=== PATIENT | male | born 1975 | race Caucasian/White ===

== ENCOUNTER 2017-12-15 13:46 | Emergency (ER) | payer MEDICAID ==
[~2017-12-15] VITALS: Ht 182.9 cm; Wt 112.0 kg
[~2017-12-15 13:46] MED LIST: CLIN-5 PO
[2017-12-15 13:57] VITALS: BP 139/87
[2017-12-15] MEDS ORDERED: SULF1TAB49 PO (14:50)
[2017-12-15] MEDS ORDERED: CEPH500C5 PO (14:50)
== END 2017-12-15 15:16 | disposition left against medical advice (07) ==
LOC: ER 13:47
DX: L02.414 Cutaneous abscess of left upper limb (principal); L02.413 Cutaneous abscess of right upper limb; L03.114 Cellulitis of left upper limb; L03.113 Cellulitis of right upper limb; I10 Essential (primary) hypertension; J45.909 Unspecified asthma, uncomplicated; G89.29 Other chronic pain; M19.90 Unspecified osteoarthritis, unspecified site; Z86.14 Personal history of Methicillin resistant Staphylococcus aureus infection; Z98.890 Other specified postprocedural states; Z79.899 Other long term (current) drug therapy; Z59.0 Homelessness; Z56.0 Unemployment, unspecified
CPT/HCPCS: 99283; A6446; A6449

== ENCOUNTER 2018-11-11 04:07 | Emergency (ER) | payer MEDICAID ==
[~2018-11-11] VITALS: Ht 182.9 cm; Wt 102.2 kg
[~2018-11-11 04:07] MED LIST changes: +CEPH500C5 PO
[2018-11-11] MEDS ORDERED: acetaminophen 325mg tablet PO ONE (04:30)
[2018-11-11] MEDS ORDERED: ondansetron 4mg rapidly disintigrating tab PO ONE (04:30)
[2018-11-11] MEDS ORDERED: ibuprofen tablet 400 MG TABLET PO ONE (04:30)
[2018-11-11] MEDS ORDERED: amox tr/potassium clavulanate 875/125mg TAB PO ONE (04:30)
[2018-11-11] MEDS ORDERED: bacitracin 15gm ointment TP ONE (04:30)
--- NOTE | 2018-11-11 05:09 | NUR ---
Pt given tylenol, ibuprofen, augmenten and zofran [address] samson at bedside numbing pts lip lac. Pt tolerating well.
--- NOTE | 2018-11-11 05:36 | NUR ---
dr. samson at bedside suturing.
[2018-11-11 05:37] VITALS: BP 163/79
[2018-11-11] MEDS ORDERED: AMOX-422 PO (05:43)
== END 2018-11-11 06:05 | disposition home or self-care (01) ==
LOC: ER 04:08
DX: S01.511A Laceration without foreign body of lip, initial encounter (principal); I10 Essential (primary) hypertension; J45.909 Unspecified asthma, uncomplicated; M19.90 Unspecified osteoarthritis, unspecified site; G89.29 Other chronic pain; Z86.14 Personal history of Methicillin resistant Staphylococcus aureus infection; F15.90 Other stimulant use, unspecified, uncomplicated; Z79.899 Other long term (current) drug therapy; Z98.890 Other specified postprocedural states; Z59.0 Homelessness; Z56.0 Unemployment, unspecified; Y04.0XXA Assault by unarmed brawl or fight, initial encounter; Y93.89 Activity, other specified; Y92.89 Other specified places as the place of occurrence of the external cause; Y99.8 Other external cause status
CPT/HCPCS: 12011; 99284

== ENCOUNTER 2018-12-15 17:23 | Emergency (ER) | payer MEDICAID ==
[~2018-12-15] VITALS: Ht 182.9 cm; Wt 102.3 kg
[2018-12-15 17:24] VITALS: BP 137/85
== END 2018-12-15 22:17 | disposition left against medical advice (07) ==
LOC: ER 17:24
DX: L08.9 Local infection of the skin and subcutaneous tissue, unspecified (principal); Z53.21 Procedure and treatment not carried out due to patient leaving prior to being seen by health care provider

== ENCOUNTER 2019-02-02 19:49 | Emergency (ER) | payer MEDICAID ==
[~2019-02-02] VITALS: Ht 182.9 cm; Wt 100.0 kg
[~2019-02-02 19:49] MED LIST changes: -CEPH500C5 PO
[2019-02-02] MEDS ORDERED: ketorolac trometh inj. 60 MG/2 ML VIAL IM ONE (20:25)
[2019-02-02] MEDS ORDERED: morphine 4 MG/ML inj SYRINge IM ONE (20:25)
[2019-02-02] MEDS ORDERED: HYDROcodone/acetaminophen 10/325mg tab PO ONE (20:25)
--- NOTE | 2019-02-02 20:25 | NUR ---
Pt's personal items with security. To be returned to Pt at discharge.
[2019-02-02 20:59] VITALS: BP 126/74
[2019-02-02] MEDS ORDERED: IBUP-1986 PO (21:19)
[2019-02-02] MEDS ORDERED: HYDR-4353 PO (21:33)
--- NOTE | 2019-02-02 21:50 | NUR ---
Pt belongings retrieved from security and returned to Pt.
== END 2019-02-02 21:51 | disposition home or self-care (01) ==
LOC: ER 19:50
DX: S22.20XA Unspecified fracture of sternum, initial encounter for closed fracture (principal); L08.9 Local infection of the skin and subcutaneous tissue, unspecified; I10 Essential (primary) hypertension; J45.909 Unspecified asthma, uncomplicated; M19.90 Unspecified osteoarthritis, unspecified site; G89.29 Other chronic pain; F41.9 Anxiety disorder, unspecified; F32.9 Major depressive disorder, single episode, unspecified; F17.200 Nicotine dependence, unspecified, uncomplicated; F11.90 Opioid use, unspecified, uncomplicated; Z59.0 Homelessness; Z56.0 Unemployment, unspecified; Z98.890 Other specified postprocedural states; Z86.14 Personal history of Methicillin resistant Staphylococcus aureus infection; Z79.2 Long term (current) use of antibiotics; Z79.899 Other long term (current) drug therapy; Y04.2XXA Assault by strike against or bumped into by another person, initial encounter; Y93.89 Activity, other specified; Y92.89 Other specified places as the place of occurrence of the external cause; Y99.8 Other external cause status
CPT/HCPCS: 71046; 71120; 96372; 99283; J1885; J2270

== ENCOUNTER 2019-04-09 20:29 | Emergency (ER) | payer MEDICAID ==
[~2019-04-09] VITALS: Ht 185.4 cm; Wt 110.0 kg
[~2019-04-09 20:29] MED LIST changes: +IBUP-1986 PO
[2019-04-09 20:34] VITALS: BP 151/92
[2019-04-09] MEDS ORDERED: HYDROcodone/acetaminophen 10/325mg tab PO ONE (20:40)
[2019-04-09] MEDS ORDERED: LIDOcaine 1% W/epiNEPHrine 1:100,000 20ml vial SQ ONE (20:40)
[2019-04-09] MEDS ORDERED: HYDR-4353 PO (21:05)
== END 2019-04-09 21:30 | disposition home or self-care (01) ==
LOC: ER 20:29
DX: S22.31XA Fracture of one rib, right side, initial encounter for closed fracture (principal); S01.01XA Laceration without foreign body of scalp, initial encounter; S60.221A Contusion of right hand, initial encounter; I10 Essential (primary) hypertension; J45.909 Unspecified asthma, uncomplicated; G89.29 Other chronic pain; F11.90 Opioid use, unspecified, uncomplicated; M19.90 Unspecified osteoarthritis, unspecified site; Z59.0 Homelessness; Z56.0 Unemployment, unspecified; Z98.890 Other specified postprocedural states; Y04.0XXA Assault by unarmed brawl or fight, initial encounter; Y93.89 Activity, other specified; Y92.89 Other specified places as the place of occurrence of the external cause; Y99.9 Unspecified external cause status
CPT/HCPCS: 12001; 71045; 73130; 99283